=== PATIENT | female | born 1945 | race Caucasian/White ===

== ENCOUNTER → 2020-05-25 11:04 | Outpatient (BNVA) | payer MEDICARE, SELFPAY | PROVIDERS: PCP Internal Medicine; Referring Provider Internal Medicine; Visit Provider Hospitalist | DX: J67.9 Hypersensitivity pneumonitis due to unspecified organic dust (principal); J45.40 Moderate persistent asthma, uncomplicated; G47.33 Obstructive sleep apnea (adult) (pediatric); I48.91 Unspecified atrial fibrillation; Z79.01 Long term (current) use of anticoagulants; Z99.89 Dependence on other enabling machines and devices | CPT/HCPCS: 99212 ==

== ENCOUNTER → 2020-11-23 11:23 | Outpatient (BNVA) | payer MEDICARE, SELFPAY | PROVIDERS: PCP Internal Medicine; Visit Provider Hospitalist | DX: G47.33 Obstructive sleep apnea (adult) (pediatric) (principal); J45.40 Moderate persistent asthma, uncomplicated; Z99.89 Dependence on other enabling machines and devices; J67.9 Hypersensitivity pneumonitis due to unspecified organic dust; R06.00 Dyspnea, unspecified | CPT/HCPCS: 99212 ==

== ENCOUNTER → 2021-06-27 10:49 | Outpatient (BNVA) | payer MEDICARE, SELFPAY | PROVIDERS: PCP Internal Medicine; Visit Provider Hospitalist | DX: G47.33 Obstructive sleep apnea (adult) (pediatric) (principal); J45.40 Moderate persistent asthma, uncomplicated; J67.9 Hypersensitivity pneumonitis due to unspecified organic dust; R06.00 Dyspnea, unspecified; Z99.89 Dependence on other enabling machines and devices | CPT/HCPCS: 99212 ==

== ENCOUNTER → 2022-05-11 13:16 | Outpatient (BNVA) | payer MEDICARE, SELFPAY | PROVIDERS: PCP Internal Medicine; Visit Provider Hospitalist | DX: G47.33 Obstructive sleep apnea (adult) (pediatric) (principal); J45.40 Moderate persistent asthma, uncomplicated; J67.9 Hypersensitivity pneumonitis due to unspecified organic dust; R06.00 Dyspnea, unspecified; R91.8 Other nonspecific abnormal finding of lung field; Z99.89 Dependence on other enabling machines and devices | CPT/HCPCS: 99212 ==

== ENCOUNTER 2022-10-04 11:11 | Outpatient (REF) | payer MEDICARE, SELFPAY ==
--- NOTE | ~2022-10-04 | CT_ITS ---
EXAMINATION: CT CHEST WITHOUT CONTRAST CLINICAL INFORMATION: Interstitial lung disease. COMPARISON: Chest x-ray of 12/30/2014 TECHNIQUE: Multidetector volumetric CT imaging of the chest was done. Axial MIP volume rendering provided. Sagittal and coronal reformatted images were obtained. This CT examination was performed using dose optimization techniques as appropriate, variously including the following: *Automated exposure control *Adjustment of mA and/or kV according to patient size (this includes techniques or standardized protocols for targeted exams where dose is matched to indication/reason for exam; i.e. extremities or head) *Use of iterative reconstruction technique DLP: 297 mGy-cm FINDINGS: LUNGS: Central airways are patent. There is bronchial wall thickening present without significant bronchiectasis identified. Patient is status post previous right upper lobe surgery. There are minimal changes of centrilobular emphysema seen within the upper lobes bilaterally. Scattered less than 4 mm densities are present. There is a mild reticulonodular appearance to the lungs bilaterally with slight upper lobe predominance. This is slightly more prominent peripherally. No definite honeycombing identified. A few scattered calcified granulomas are present. No significant ground-glass opacities are appreciated. There is a region of disease seen within the right lower lobe anteromedial measuring approximately 2.5 x 2.5 x 2.0 cm in size and likely related to scarring however has a faint ground-glass opacity present as well as an approximately 1.4 x 0.7 x 0.5 cm solid component. There is a well-circumscribed ellipsoid density about the junctions of the horizontal and major fissures on image [address] series #5 measuring approximately 9 x 6 x 5 mm in size. This likely represents an intrafissural lymph node. There is a 6 x 3 mm noncalcified subpleural density seen on image 135 of 460. There is a 4 mm noncalcified nodule seen within the right upper lobe on image 159 of 460. MEDIASTINUM: The left lobe of thyroid is prominent and there appear to be nodules present within the isthmus and left lobe measuring up to 2.7 and 1.8 cm in diameter. The heart is enlarged. Coronary artery calcifications are present. Pacemaker seen in place. No pericardial effusion. The ascending thoracic aorta measures up to 3.9 cm in diameter. No mediastinal or hilar lymphadenopathy. CORONARY ARTERY CALCIFICATION: Coronary artery calcification is present. PLEURA: There is no pleural effusion. No pleural mass or thickening. AXILLA: No lymphadenopathy. UPPER ABDOMEN: Unremarkable. OSSEOUS STRUCTURES: No suspicious destructive bony lesions identified. There is severe degenerative change of the left shoulder. There is multilevel degenerative disc disease seen throughout the thoracic spine. CT/CT chest wo IV con IMPRESSION: Old granulomatous disease. Mild Interstitial lung disease with some scattered small nodular densities with a somewhat upper lobe and peripheral distribution which could be seen in respiratory bronchiolitis of smoking and possible silicosis. Focal regions of nodules and lung disease as described. Thyroid nodules for which thyroid ultrasound is recommended. Cardiomegaly. According to the UPDATED 2017 Fleischner Society recommendations, the advised follow-up imaging for multiple solid nodules, the largest measuring 6 mm or greater, is: LOW RISK PATIENT: CT at 3-6 months, then consider CT at 18-24 months. HIGH RISK PATIENT: CT at 3-6 months, then at 18-24 months.
== END 2022-10-04 11:12 | disposition home or self-care (01) ==
LOC: HO.CT 11:11
PROVIDERS: Visit Provider Hospitalist
DX: R91.8 Other nonspecific abnormal finding of lung field (principal)
CPT/HCPCS: 71250

== ENCOUNTER 2022-10-12 12:49 | Outpatient (REF) | payer MEDICARE, SELFPAY ==
--- NOTE | 2022-10-12 14:38 | PFT_ITS ---
INDICATION: Dyspnea. SPIROMETRY: FEV1 to FVC 84% with an FEV1 1.76 L, which is 38% predicted and FVC of 2.09 L, which is 78% predicted. No significant response to bronchodilator is noted. Maximum voluntary ventilation 91% predicted. LUNGS VOLUMES: Total lung capacity 85% predicted, expiratory reserve volume of 25% predicted. DIFFUSION CAPACITY: DLCO 70% predicted. COMPARISON: None. INTERPRETATION: No obstructive nor restrictive ventilatory defects identified. No significant response to bronchodilators noted. Normal maximum voluntary ventilation. Lung volumes are low normal. Patient does have a mild diffusion impairment. Clinical correlation warranted. Hansel Hutton MD MR/MODL / [id number]
== END 2022-10-12 12:50 | disposition home or self-care (01) ==
LOC: HO.RESP 12:49
PROVIDERS: PCP Internal Medicine; Visit Provider Hospitalist
DX: J67.9 Hypersensitivity pneumonitis due to unspecified organic dust (principal); R06.6 Hiccough
CPT/HCPCS: 94060; 94727; 94729

== ENCOUNTER → 2022-11-14 11:01 | Outpatient (BNVA) | payer MEDICARE, SELFPAY | PROVIDERS: PCP Internal Medicine; Visit Provider Hospitalist | DX: R91.8 Other nonspecific abnormal finding of lung field (principal); J45.40 Moderate persistent asthma, uncomplicated; R06.00 Dyspnea, unspecified; J67.9 Hypersensitivity pneumonitis due to unspecified organic dust; G47.33 Obstructive sleep apnea (adult) (pediatric); Z99.89 Dependence on other enabling machines and devices | CPT/HCPCS: 99212 ==

== ENCOUNTER 2023-09-24 11:20 | Outpatient (REF) | payer MEDICARE, SELFPAY ==
--- NOTE | ~2023-09-24 | CT_ITS ---
EXAMINATION: CT CHEST WITHOUT CONTRAST CLINICAL INFORMATION: Pulmonary nodule follow-up COMPARISON: Chest CT October 04, 2022 TECHNIQUE: Multidetector volumetric CT imaging of the chest was done. Axial MIP volume rendering provided. Sagittal and coronal reformatted images were obtained. This CT examination was performed using dose optimization techniques as appropriate, variously including the following: *Automated exposure control *Adjustment of mA and/or kV according to patient size (this includes techniques or standardized protocols for targeted exams where dose is matched to indication/reason for exam; i.e. extremities or head) *Use of iterative reconstruction technique DLP: 156 mGy-cm FINDINGS: Central airways are patent. Lungs are adequately aerated. Mild emphysematous changes are noted. Stable postsurgical changes of the right lung. Some mild subpleural reticular changes are again appreciated bilaterally, particularly dependently. Similar suspected scarring within the anteromedial aspect of the right lower lobe. There is no pleural effusion present. No pneumothorax. A few sub-5 mm pulmonary nodule/nodular densities are stable. No new suspicious pulmonary nodules visualized. The heart is enlarged. Dual-lead pacemaker again noted. Coronary artery calcifications are present. There is no pericardial effusion. Normal caliber thoracic aorta. No gross mediastinal or hilar lymphadenopathy appreciated on today's noncontrast imaging. No pathologically enlarged axillary lymph nodes. Enlarged left thyroid lobe with suspected underlying nodules. Visualized portions of the upper abdomen are grossly unremarkable. Diffuse osteopenia. Mild to moderate degenerative changes of the spine. CT/CT chest wo IV con IMPRESSION: 1. Stable postsurgical changes of the right lung. 2. A few sub-5 mm pulmonary nodule/nodular densities are stable. No new suspicious pulmonary nodules visualized. Fleischner guidelines were followed.
== END 2023-09-24 11:21 | disposition home or self-care (01) ==
LOC: HO.CT 11:20
PROVIDERS: PCP Internal Medicine; Visit Provider Hospitalist
DX: R91.8 Other nonspecific abnormal finding of lung field (principal)
CPT/HCPCS: 71250

== ENCOUNTER 2023-10-24 11:45 | Outpatient (AMB) | payer MEDICARE, SELFPAY ==
[2023-10-24 11:49] VITALS: PULSE 71; O2SAT 99; BMI 29.2
--- NOTE | 2023-10-24 11:49 | MHC.OFFVIS ---
Intake Vital Signs 10/24/23 11:49 Height 5 ft 3 in Weight 164 lb 14.492 oz BMI 29.2 Pulse 71 Pulse Source Pulse Oximeter Pulse Oximetry (%) 99 Oxygen Delivery Method Room Air Intake Visit Reasons: COPD Control Supervisor Required: No Allergies egg [EGG] Allergy (Severe, Verified 10/24/23 11:50) GI SYMPTOMS umeclidinium [From Incruse Ellipta] Allergy (Severe, Verified 10/24/23 11:50) Hives aspirin [ASA] Allergy (Intermediate, Verified 10/24/23 11:50) HIVES lactose [LACTOSE] Allergy (Intermediate, Verified 10/24/23 11:50) GI SYMPTOMS NSAIDS (Non-Steroidal Anti-Inflamma [NSAIDS (NON-STEROIDAL ANTI-INFLAMMA] Allergy (Intermediate, Verified 10/24/23 11:50) HIVES tree and shrub pollen [TREE] Allergy (Intermediate, Verified 10/24/23 11:50) RUNNY NOSE, CONGESTION oxycodone [OXYCODONE] Allergy (Mild, Verified 10/24/23 11:50) NAUSEA & VOMITING GRASS Allergy (Severe, Uncoded 10/24/23 11:50) RUNNY NOSE, SWOLLEN TONSILS STEROIDS Allergy (Intermediate, Uncoded 10/24/23 11:50) RXN TO EYE- ALMOST WENT BLIND HPI HPI Comments History of Present Illness Details The patient is a 78-year-old woman with a known history of hypersensitivity pneumonitis, asthma and obstructive sleep apnea. Since we last spoke the patient was diagnosed with atrial fibrillation and now currently wearing a Holter monitor and also was placed on Eliquis. In regards to the CPAP she appears to be using it every night. The therapy has been affecting beneficial. Now that she has a new diagnosis of atrial fibrillation I will request a download from her [facility] in order to further adjust her PAP therapy of warranted. She continues on the Advair 1 puff twice a day. Back in February she was evaluated by her fan balancer and was treated for pneumonia at the time. The patient does have some dyspnea on exertion mild in severity. She does attributed to her arthritities and she has also gained some weight. 06/27/2021 the patient is here for a pulmonary follow-up visit. Overall the patient has been doing better. 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 The patient's dizziness has improved ever since. Although she still complains of shortness of breath and dyspnea on exertion. the patient has indeed gained weight. She has issues with hip that has been bothering her and because of the dizziness she was not able to engage in exercise activity. She did have a chest x-ray demonstrating no acute disease and no evidence of any recurrent pneumonitis. Therefore will hold off on the CT scan at this time. The patient continues to use her respiratory therapy. She does have some hoarseness. Continue to monitor the this time. The patient has been using her CPAP. The CPAP therapy continues to be affecting beneficial. She does use it for more than 4 hours a night. She does not like using it but she does feel better when she does use it. 05/11/2022 the patient is here for a pulmonary follow-up visit. Recently, the patient had a syncopal episode which the stairs which she was taking to [facility]. there had a complete workup for syncope. No clear explanation at this time. Part of the process she did have a way that ruled out pulmonary emboli although it did demonstrate multiple pulmonary nodules 1 measuring 7 mm ground-glass. She has had multiple CT scans in the past because she has had a history of interstitial lung disease in the form of hypersensitivity pneumonitis. The patient has had a surgical biopsy done on the right side. I did review her CT scan of the chest from [facility] done March 2022 and also compared to a CT scan that she had at [facility] back in 2019. patient has a lot of stable pulmonary nodules. However her current CT scan demonstrates Incruse haziness suggesting congestion. It is not clear if this is related to a lung contusion from her fall. The area of ground-glass opacities appear to be new compared to her previous CT scans. That is not clear if this is a acute change due to her fall or symptoms has been evolving. Clinically she is doing well. Denies any weight loss or night sweats or any significant cough or or denies any from the wall. She will hold already arranged to go to [place] for the winter she will be back with his brain. Therefore, will go ahead and have her come back in the springtime get a CT scan at that time. If the patient has any worsening respiratory symptoms prior to that she notes to have that evaluated sooner. In the meantime she does continue to use her CPAP every night. The CPAP therapy has been affecting beneficial. Although she struggles with her mask. I did have a medium N30i mask that she could try to see if this more effective for her. 11/14/2022 the patient is here for a pulmonary follow-up visit. She does complaint of dyspnea on exertion. [id number]-jjssthwj severity. Does get better with rest. She does use her inhalers with good adherence. We did look at her pulmonary function studies demonstrating no obstructive nor restrictive ventilatory defects. She does have a mild diffusion impairment that is isolated. She also underwent a CT scan of the chest that was personally by me. She does have evidence some some atelectasis and some interstitial lung changes likely from her history of hypersensitive pneumonitis. She also has a 7 mm pulmonary nodule in the right side that has not changed which is reassuring. In addition to this, the patient does have evidence of increased cardiac size. 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 This is at [facility]. During the visit we did go for brief walking oximetry and her oxygen was stable although her heart rate did increase to about 120 with minimal activity. She is currently in atrial fibrillation. Explained to her that is likely multifactorial her symptoms of dyspnea although does have a cardiac component. She continues use her CPAP regularly. The CPAP therapy continues to be affecting beneficial. Will go ahead and request additional supplies. 10/24/2023 the patient is here for a pulmonary follow-up visit. The patient overall has been doing fairly well. Although she complains of worsening dyspnea on exertion. Rkmf-jy-pwfacsno severity. She is still dealing with the atrial fibrillation. Denies any wheezing or chest tightness. She does have inhalers although she does not using regularly. I did personally reviewed her CT chest with her. Her nodules have been stable and no evidence of active disease. She does have post operative changes from her VATS. The patient does use her CPAP feel. The CPAP therapy continues to be affecting beneficial. She does use it every night for more than 4 hours a night. She continues to get supplies from [facility] regularly. She is very happy with their service. The patient appears to be volume overloaded. Will plan to give her some diuretic therapy for 3 days to see if we can improve her volume status and therefore improve her symptoms. The patient has not had a recent echocardiogram. The last echo was more than 2 years ago. With her underlying cardiac issues and worsening respiratory symptoms will have her undergo a echocardiogram at this time. She wants to have it done at [facility]. [facility] Medical History (Updated 10/24/23 @ 22:49 by Hansel Hutton MD) Pulmonary nodules SHERLY on CPAP Asthma Hypersensitivity pneumonitis Dyspnea Social History (Updated 06/27/21 @ 11:04 by JESSE Lazo) Patient Tobacco Use Status: Former Tobacco user Tobacco use type: Cigarette Years Smoked: Quit 1979 Review of Systems Const Denies daytime sleepiness, Denies night sweats and Reports weight gain ENT Denies change in voice, Denies lip swelling, Denies mouth pain, Reports nasal congestion, Reports nasal discharge and Denies tongue swelling Card Denies chest pain and Reports dyspnea on exertion Resp Reports cough and Reports dyspnea on exertion GI Denies abdominal pain Musc Denies no additional complaints Neuro Denies Neuro-related abnormal movements Psych Denies no additional complaints Fran/Lymph Denies easy bleeding and Denies lymphadenopathy Aller/Immun Denies lip swelling and Denies tongue swelling Physical Exam Vital Signs: Last Vital Signs Pulse 71 10/24/23 11:49 Pulse Ox 99 10/24/23 11:49 Oxygen Delivery Method Room Air 10/24/23 11:49 BMI result Body Mass Index 29.2 Const General: alert HEENT General nose exam: Abnormal external nose present and Nasal discharge present Eyes Pupils: Equal, round and reactive pupils present Neck Neck: Yes normal visual inspection, Yes full ROM and Yes no lymphadenopathy Chest Chest palpation & inspection: normal inspection of the chest Resp Auscultation: diminished lung sounds Cardio Heart sounds: S1 normal heart sound present and S2 normal heart sound present GI Palpation (GI): Soft to palpation and nontender Auscultation: normal bowel sounds General: Yes no CVA tenderness Back/Spine/Pelvis Back: no CVA tenderness Skin General skin exam: no rashes or lesions noted Neuro Cranial nerves: Yes Equal, round and reactive pupils present Extrem General: No clubbing, No cyanosis and Yes edema Results Reviewed Results Reviewed: [address] [address] [address] Scan Report Signed Patient: Sinai Alva MR#: [id number] : 1945 Acct:[id number] Age/Sex: 78 / F ADM Date: 09/24/23 Loc: .CT Attending Dr: Hansel Hutton MD Ordering Physician: Hansel Hutton MD Date of Service: 09/24/23 Procedure(s): CT chest wo IV con Accession Number(s): [id number] cc: WILDER KNOX MD; Hansel Hutton MD~ EXAMINATION: CT CHEST WITHOUT CONTRAST CLINICAL INFORMATION: Pulmonary nodule follow-up COMPARISON: Chest CT October 04, 2022 TECHNIQUE: Multidetector volumetric CT imaging of the chest was done. Axial MIP volume rendering provided. Sagittal and coronal reformatted images were obtained. This CT examination was performed using dose optimization techniques as appropriate, variously including the following: *Automated exposure control *Adjustment of mA and/or kV according to patient size (this includes techniques or standardized protocols for targeted exams where dose is matched to indication/reason for exam; i.e. extremities or head) *Use of iterative reconstruction technique DLP: 156 mGy-cm FINDINGS: Central airways are patent. Lungs are adequately aerated. Mild emphysematous changes are noted. Stable postsurgical changes of the right lung. Some mild subpleural reticular changes are again appreciated bilaterally, particularly dependently. Similar suspected scarring within the anteromedial aspect of the right lower lobe. There is no pleural effusion present. No pneumothorax. A few sub-5 mm pulmonary nodule/nodular densities are stable. No new suspicious pulmonary nodules visualized. The heart is enlarged. Dual-lead pacemaker again noted. Coronary artery calcifications are present. There is no pericardial effusion. Normal caliber thoracic aorta. No gross mediastinal or hilar lymphadenopathy appreciated on today's noncontrast imaging. No pathologically enlarged axillary lymph nodes. Enlarged left thyroid lobe with suspected underlying nodules. Visualized portions of the upper abdomen are grossly unremarkable. Diffuse osteopenia. Mild to moderate degenerative changes of the spine. CT/CT chest wo IV con IMPRESSION: 1. Stable postsurgical changes of the right lung. 2. A few sub-5 mm pulmonary nodule/nodular densities are stable. No new suspicious pulmonary nodules visualized. Fleischner guidelines were followed. Dictated By: Roel Shaw MD Signed By: <Electronically signed by Roel Shaw MD in OV> 09/27/23 0836 DD/ 1218 TD/TT: Medical Education Specialist: PD Assessment & Plan Assessment & Plan (1) SHERLY on CPAP: Code(s): G47.33 - Obstructive sleep apnea (adult) (pediatric); Z99.89 - Dependence on other enabling machines and devices (2) Asthma: Code(s): J45.909 - Unspecified asthma, uncomplicated Qualifiers: Asthma complication type: uncomplicated Asthma persistence: persistent Asthma severity: moderate Qualified Code(s): J45.40 - Moderate persistent asthma, uncomplicated (3) Hypersensitivity pneumonitis: Comment: resolved Code(s): J67.9 - Hypersensitivity pneumonitis due to unspecified organic dust (4) Dyspnea: Code(s): R06.00 - Dyspnea, unspecified Qualifiers: Dyspnea type: dyspnea on exertion Qualified Code(s): R06.00 - Dyspnea, unspecified (5) Pulmonary nodules: Code(s): R91.8 - Other nonspecific abnormal finding of lung field Plan Continue Advair Continue CPAP 7-16. [employer] Lasix x 3 days ECHO at [facility] PFTs F/U 8-12 months Orders: Orders PFT pulmonary function test 09/20/24 R06.00 - Dyspnea, unspecified CA echo transthoracic complete Today I27.20 - Pulmonary hypertension, unspecified Medications: Refilled furosemide (Lasix) 20 mg PO DAILY 3 tabs 0RF 3 days Coding Level of Care Code Tele Est Pt Level 4 (73260) Diagnoses SHERLY on CPAP G47.33; Z99.89 Moderate persistent asthma without complication J45.40 Asthma complication type: uncomplicated Asthma persistence: persistent Asthma severity: moderate Hypersensitivity pneumonitis J67.9 Dyspnea on exertion R06.00 Dyspnea type: dyspnea on exertion Pulmonary nodules R91.8 Time Spent (min) 17
== END 2023-10-24 12:10 | disposition home or self-care (01) ==
PROVIDERS: PCP Internal Medicine; Visit Provider Hospitalist
DX: J45.40 Moderate persistent asthma, uncomplicated (principal); G47.33 Obstructive sleep apnea (adult) (pediatric); Z99.89 Dependence on other enabling machines and devices; J67.9 Hypersensitivity pneumonitis due to unspecified organic dust; R91.8 Other nonspecific abnormal finding of lung field
CPT/HCPCS: 99214

== ENCOUNTER → 2023-10-24 11:45 | Outpatient (BNVA) | payer MEDICARE, SELFPAY | PROVIDERS: PCP Internal Medicine; Visit Provider Hospitalist | DX: J45.40 Moderate persistent asthma, uncomplicated (principal); J67.9 Hypersensitivity pneumonitis due to unspecified organic dust; R91.8 Other nonspecific abnormal finding of lung field; R06.00 Dyspnea, unspecified; G47.33 Obstructive sleep apnea (adult) (pediatric); Z99.89 Dependence on other enabling machines and devices | CPT/HCPCS: 99212 ==

== ENCOUNTER 2024-09-25 12:57 | Outpatient (REF) | payer MEDICARE, SELFPAY ==
--- NOTE | 2024-09-25 13:10 | PFT_ITS ---
Indication: Dyspnea Spirometry [FEV1 to FVC pre bronchodilator 70% and post bronchodilators 77%; FEV1 1.78 L; FVC 2.31 L. no significant response to bronchodilators noted. The patient does have significant small airways disease.] Lung Volumes [Total lung capacity 85% predicted; residual volume 74% predicted; expiratory reserve volume 27% predicted] Diffusion Capacity [DLCO 79% predicted] Comparisons [none] Interpretation [There is a reversible obstruction consistent with a diagnosis of asthma. No significant response to bronchodilators noted. There was significant small airways disease however. Lung volumes are within normal limits. The patient has a very mild diffusion impairment. Clinical correlation warranted.] MTDD
[2024-09-25 14:00] VITALS: PULSE 72
--- OUTSIDE RECORDS SUMMARY | 2024-09-25 15:39 | XMS_ITS | Encounter Summary ---
Author Organization [facility] Address [address] [place] [address] Care Team Providers Care Automation Test Developer Name Role Phone José Duncan MD Primary Care Provider [phone] Encounter Details Date Type Department Care Team (Late st Contact Info) Description 09/03/2024 11:50 AM EST Ancillary Procedure [facility] Card[facility] [address] [facility] [address] [place] [id number] Social History Tobacco Use Types Packs/Day Years Used Date Smoking Tobacco: Former Cigarettes Smokeless Tobacco: Never Alcohol Use Standard Drinks/Week Comments Yes 0 (1 standard drink = 0.6 oz pur e alcohol) Comments Unknown Sex and Gender Information Value Date Recorded Sex Assigned at Not on file Legal Sex Female 1:25 PM EST Gender Identity Not on file Sexual Orientation Not on file documented as of this encounter Plan of Treatment Upcoming Encounters Date Type Department Care Team (Late Contact Info) Description 04/07/2025 1:30 PM EDT Ancillary Procedure [facility] Card[facility] [address] [facility] [address] [place] [phone] documented as of this encounter Procedures Procedure Name Priority Date/Time Associated Diagnosis Comments CARDIAC DEVICE CHECK- REMOTE- MURJ Routine 09/03/2024 11:46 AM EST documented in this encounter Results * Cardiac device check - Remote- MURJ (09/03/2024 11:46 AM EST) Date Time Interrogation Session [id number] CV DEVICE CHECK Type Interrogation Session Remote Device Initiated CV DEVICE CHECK Implantable Pulse Generator Extractor Operator Solvent Process BSX CV DEVICE CHECK Implantable Pulse Generator Type IPG CV DEVICE CHECK Implantable Pulse Generator Model L111 CV DEVICE CHECK Implantable Pulse Generator Serial Number [id number] CV DEVICE CHECK Implantable Pulse Generator Implant Date 20210303 CV DEVICE CHECK Battery Remaining Percentage 100.00 CV DEVICE CHECK Battery Remaining Longevity 78.0 CV DEVICE CHECK Battery Status Beginning of Service CV DEVICE CHECK Austin Statistic RA Percent Paced 0.00 CV DEVICE CHECK Austin Statistic RV Percent Paced 42.00 CV DEVICE CHECK Lead Channel Setting Sensing Sensitivity 0.25 CV DEVICE CHECK Lead Channel Impedance Value 713 CV DEVICE CHECK Lead Channel RA Pacing Threshold Date 2024-08-27 CV DEVICE CHECK Lead Channel Sensing Intrinsic Amplitude 10.300 CV DEVICE CHECK Lead Channel Setting Sensing Sensitivity 0.60 CV DEVICE CHECK Lead Channel Impedance Value 712 CV DEVICE CHECK Lead Channel Pacing Threshold Amplitude 0.800 CV DEVICE CHECK Lead Channel Pacing Threshold Pulse Width 0.4 CV DEVICE CHECK Lead Channel RV Pacing Threshold Date 2024-08-26 CV DEVICE CHECK Lead Channel Setting Pacing Amplitude 1.300 CV DEVICE CHECK Lead Channel Setting Pacing Pulse Width 0.4 CV DEVICE CHECK Austin Setting Mode (NBG Code) VVIR CV DEVICE CHECK Austin Setting Lower Rate Limit 60 CV DEVICE CHECK Austin Setting AT Mode Switch Rate 170 CV DEVICE CHECK Zone Setting Type Category VT CV DEVICE CHECK Rate 160 CV DEVICE CHECK Zone Setting Status Monitor CV DEVICE CHECK Zone ID 1 CV DEVICE CHECK Date of Service 2024-10-11 CV DEVICE CHECK Anatomical Region Laterality Modality Device Interroga tion 08/28/2024 2:31 AM EST Impressions 09/03/2024 11:35 AM EST Normal Remote: No Events * Normal Device Function * Alerts or events: None * Battery: Battery is at 100%, 6.50 yrs * Sensing, impedance and thresholds reviewed * Programmed parameters reviewed * Presenting rhythm reviewed * Heart Rate Histograms reviewed * No significant changes noted Narrative Procedure Note Seven Sharma MD - 09/03/2024 IMPRESSION: Normal Remote: No Events * Normal Device Function * Alerts or events: None * Battery: Battery is at 100%, 6.50 yrs * Sensing, impedance and thresholds reviewed * Programmed parameters reviewed * Presenting rhythm reviewed * Heart Rate Histograms reviewed * No significant changes noted Seven Sharma MD CV IMPLANTABLE CARDIAC DEV ICE PROCEDURES Final Result documented in this encounter Visit Diagnoses Not on filedocumented in this encounter Care Teams Automation Test Developer Relationship Specialty Start Date End Date José Duncan MD PCP - General 06/11/19 documented as of this encounter
--- OUTSIDE RECORDS SUMMARY | 2024-09-25 15:39 | XMS_ITS | Continuity of Care Document ---
Author Organization [facility]. If a dditional information is needed, contact Health Information Management at [phone] [place] [address] Phone Care Team Providers Care Sample Collector Name Role Phone Unavailable Unavailable Unavailable Unavailable Unavailable Unavailable Unavailable Unavailable Unavailable Problems Hypokalemia Onset:10-Aug-2023 WALK Fall Onset:10-Aug-2023 Laceration of forehead Onset:10-Aug-2023 WALK Thyroid nodule Onset:10-Aug-2023 Allergies and Adverse Reactions No Known Allergies(Allergy) Onset: 10-Aug-2023 Social History Smoking Status Never smoked tobacco Recorded: 10-Aug-2023
--- OUTSIDE RECORDS SUMMARY | 2024-09-25 15:39 | XMS_ITS | Clinical Summary ---
Author Organization [facility] Address [address] [place] [phone] Phone Care Team Providers Care Sample Finisher Name Role Phone José Duncan MD Primary Care Provider [phone] Encounters Date Type Department Care Team Description 09/03/2024 11:50 AM EST Ancillary Procedure [facility] [address] [facility] [address] [place] [address] 07/08/2024 4:20 AM EST Ancillary Procedure [facility] [address] [facility] [address] [place] [address] from Last 3 Months Surgical History Surgery Date Site/Laterality Comments KNEE SURGERY PROCEDURE: HISTORICAL KNEE SURGERY; COMMENT: arthroscopy TOTAL KNEE ARTHROPLASTY 05/2017 Left PROCEDURE: IN ARTHRP KNE CONDYLE&PLATU MEDIAL&LAT COMPARTMENTS; COMMENT: Right 03/2017 OTHER SURGICAL HISTORY PROCEDURE: IN DILATION & CURETTAGE DX&/THER NONOBSTETRIC; COMMENT: at least 6 KNEE ARTHROSCOPY Right PROCEDURE: IN ARTHROSCOPY AID TX SPINE&/FX KNEE W/O FIXJ; COMMENT: meniscus repair KNEE ARTHROSCOPY 06/03/2012 Left PROCEDURE: IN ARTHROSCOPY AID TX SPINE&/FX KNEE W/O FIXJ; COMMENT: torn meniscus OTHER SURGICAL HISTORY 12/2014 PROCEDURE: BIOPSY LUNG/MEDIASTINUM PERCUTANEOUS NEEDLE KNEE ARTHROPLASTY 04/11/2017 PROCEDURE: IN ARTHRS KNEE ABRASION ARTHRP/WAREHOUSE LOADER DRLG/MICROFX PACEMAKER IMPLANT 03/03/2021 PROCEDURE: HISTORICAL PACEMAKER Medical History Medical History Date Comments Thyroid nodule 11/06/2017 DX:Thyroid nodul e Allergic rhinitis 01/02/2017 DX:Allergic rh initis Arthritis 01/02/2017 DX:Arthritis Asthma 03/06/2017 DX:Asthma Hypersensitivity pneumonitis (CMS/HCC) 7 DX:Hypersensitivity pneumonitis (HCC) Hypertension 01/02/2017 DX:Hypertension Irritable bowel syndrome 01/02/2017 DX:Irri table bowel syndrome Lactose intolerance 01/02/2017 DX:Lactose i ntolerance Migraine headache 01/02/2017 DX:Migraine he adache Multiple pulmonary nodules 03/06/2017 DX:Mu ltiple pulmonary nodules Obstructive sleep apnea syndrome 03/06/2017 DX:Obstructive sleep apnea syndrome; COMMENT: CPAP Total knee replacement status, bilateral 018 DX:Total knee replacement status, bilateral; COMMENT: 2016 Osteoarthritis DX:Osteoarthriti s Back pain DX:Back pain Class 1 obesity DX:Class 1 obesi ty Migraines DX:Migraines Cognitive decline DX:Cognitive d ecline Fatigue DX:Fatigue GERD (gastroesophageal reflux disease) DX:GERD (gastroesophageal reflux disease) Lower extremity edema DX:Lower e xtremity edema Multinodular goiter DX:Multinodu lar goiter Family History Medical History Relation Name Comments Breast cancer Aunt Colon cancer Aunt Coronary artery disease Father Other: Ulcer Father Breast cancer Mother Hyperlipidemia Sister Hypertension Sister Relation Name Status Comments Aunt Father Mother Sister Social History Tobacco Use Types Packs/Day Years Used Date Smoking Tobacco: Former Cigarettes Smokeless Tobacco: Never Alcohol Use Standard Drinks/Week Comments Yes 0 (1 standard drink = 0.6 oz pur e alcohol) Comments Unknown Sex and Gender Information Value Date Recorded Sex Assigned at Not on file Legal Sex Female 1:25 PM EST Gender Identity Not on file Sexual Orientation Not on file Obstetrics History Last Filed Vital Signs Vital Sign Reading Time Taken Comments Blood Pressure 140/82 11/07/2023 10:12 AM EDT Pulse 63 03/19/2023 9:14 AM EDT Temperature - - Respiratory Rate - - Oxygen Saturation - - Inhaled Oxygen Concentration - - Weight 79.8 kg (176 lb) 11/07/2023 10:12 AM EDT Height 160 cm (5' 3 ) 11/07/2023 10:12 AM EDT Body Mass Index 31.18 11/07/2023 10:12 AM EDT Plan of Treatment Upcoming Encounters Date Type Department Care Team (Late st Contact Info) Description 04/07/2025 1:30 PM EDT Ancillary Procedure [facility] [address] [facility] [address] [place] [phone] Health Maintenance Due Date Last Done Comments DTaP,Tdap,and Td Vaccines (1 - Tdap) 1964 Hepatitis A Vaccines (1 of 2 - Risk 2-dose series) 1964 RSV Immunization Patients 60+ Years Old (1 - 1-dose 75+ series) 2022 Cholesterol Screening (Lipid Panel) 07/01/2022 Depression Screening 07/01/2022 Falls Risk Assessment 07/01/2022 Hepatitis C Screening 07/01/2022 Osteoporosis Screening (Bone Density Screening) 07/01/2022 Social Influencers of Health Screening 07/01/2022 Hypertension/CHF/CAD Annual BMP Blood Test 07/02/2022 Medicare Annual Wellness Visit 07/07/2023 07/07/2022 COVID-19 Vaccine ( season) 2024 05/02/2023, 04/28/2022, 05/27/2021, Additional history exists Zoster Vaccines Completed 02/02/2019, 12/03/2018 Influenza Vaccine Completed 08/25/2024, , 04/20/2022, Additional history exists Pneumococcal Vaccine: 50+ Years Completed 08/25/2024 HIB Vaccines Aged Out No longer eligi ble based on patient's age to complete this topic HPV Vaccines Aged Out No longer eligi ble based on patient's age to complete this topic Hepatitis B Vaccines Aged Out No long er eligible based on patient's age to complete this topic IPV Vaccines Aged Out No longer eligi ble based on patient's age to complete this topic MMR Vaccines Aged Out No longer eligi ble based on patient's age to complete this topic Meningococcal ACWY Vaccine Aged Out N o longer eligible based on patient's age to complete this topic Meningococcal B Vacine Aged Out No lo nger eligible based on patient's age to complete this topic RSV Immunization Patients Under 20 months Aged Out No longer eligible based on patient's age to complete this topic Varicella Vaccines Aged Out No longer eligible based on patient's age to complete this topic Medical Devices Implanted Type Area Banana Carrier Device Identifier Shelf Expiration Date Model / Serial / Lot Bsci-Crm [id number] Implanted:06/2021 (Quantity not on file) Cardiac Pacemaker [employer] RHY[employer] MGMT [id number] / [id number] / Procedures Procedure Name Priority Date/Time Associated Diagnosis Comments CARDIAC DEVICE CHECK- REMOTE- MURJ Routine 09/03/2024 11:46 AM EST CARDIAC DEVICE CHECK- REMOTE- MURJ Routine 07/08/2024 4:16 AM EST from Last 3 Months Results * Cardiac device check - Remote- MURJ (09/03/2024 11:46 AM EST) Only the most recent of2 resultswithin the time period is included. Date Time Interrogation Session [id number] CV DEVICE CHECK Type Interrogation Session Remote Device Initiated CV DEVICE CHECK Implantable Pulse Generator Banana Carrier BSX CV DEVICE CHECK Implantable Pulse Generator Type IPG CV DEVICE CHECK Implantable Pulse Generator Model L111 CV DEVICE CHECK Implantable Pulse Generator Serial Number [id number] CV DEVICE CHECK Implantable Pulse Generator Implant [...] Histograms reviewed * No significant changes noted us Seven Sharma MD CV IMPLANTABLE CARDIAC DEV ICE PROCEDURES Final Result from Last 3 [place] [address] MEDICARE [facility] Care Teams Sample Finisher Relationship Specialty Start Date End Date José Duncan MD PCP - General 06/11/19
== END 2024-09-25 12:58 | disposition home or self-care (01) ==
LOC: HO.RESP 12:57
PROVIDERS: PCP Internal Medicine; Visit Provider Hospitalist
DX: R06.00 Dyspnea, unspecified (principal)
CPT/HCPCS: 94010; 94640; 94727; 94729

== ENCOUNTER → 2024-09-25 13:10 | Outpatient (BNV) | payer MEDICARE, SELFPAY | PROVIDERS: PCP Internal Medicine; Visit Provider Hospitalist | DX: R06.00 Dyspnea, unspecified (principal) | CPT/HCPCS: 94060; 94727; 94729 ==